=== PATIENT | male | born 1940 | race Caucasian/White ===

== ENCOUNTER 2017-07-16 12:45 | Emergency (ER) | payer MEDICARE ==
[~2017-07-16 12:45] MED LIST: ALLO300T2 PO; FLUO20TA29 PO; FURO40TA5 PO; HYDR-4064 PO; INSU3INS3 SQ; METO100T14 PO; MULT-1203 PO; NACL30SP2 NS; QUIN5TAB12 PO; ROSU40 PO; SPIR25TA4 PO; TEMA30CA PO; UBID100C45 PO; VITA-328 PO
== END 2017-07-16 14:52 | disposition home or self-care (01) ==
LOC: EDH 12:45
DX: S67.193A Crushing injury of left middle finger, initial encounter (principal); I10 Essential (primary) hypertension; E11.9 Type 2 diabetes mellitus without complications; Z95.0 Presence of cardiac pacemaker; W23.0XXA Caught, crushed, jammed, or pinched between moving objects, initial encounter; Y93.89 Activity, other specified; Y92.89 Other specified places as the place of occurrence of the external cause; Y99.8 Other external cause status
CPT/HCPCS: 73140

== ENCOUNTER 2019-05-28 15:29 | Emergency (ER) | payer MEDICARE ==
[~2019-05-28 15:29] MED LIST changes: -SPIR25TA4 PO; +SPIR25TA6 PO
[2019-05-28 16:09] LABS: BASOPHILS % (AUTO) 0.4 % (0.0-5.0); EOSINOPHILS % (AUTO) 2.3 % (0.0-8.0); HEMATOCRIT 37.8 % (42-54); LYMPHOCYTES % (AUTO) 11.1 % (21.0-51.0); MEAN CORPUSCULAR HEMOGLOBIN 29.3 pg (27.0-33.0); MEAN CORPUSCULAR HGB CONC 32.8 g/dL (32.0-36.0); MEAN CORPUSCULAR VOLUME 89.3 fL (79-99); MONOCYTES % (AUTO) 8.2 % (3.0-13.0); PLATELET COUNT (AUTO) 180 K/uL (130-400); RED BLOOD CELL COUNT(AUTO) 4.23 MIL/uL (4.50-6.20); RED CELL DISTRIBUTION WIDTH 16.2 % (11.0-15.5); WHITE BLOOD COUNT (AUTO) 8.6 K/uL (4.8-10.8)
[2019-05-28 16:18] LABS: POTASSIUM 3.9 mmol/L (3.5-5.1)
[2019-05-28 16:23] LABS: INR 1.13 (0.85-1.15); PARTIAL THROMBOPLASTIN TIME 39.4 SEC (26.3-35.5); PROTHROMBIN TIME 11.8 SEC (9.6-11.6)
== END 2019-05-28 18:25 | disposition home or self-care (01) ==
LOC: EDH 15:29
DX: R04.0 Epistaxis (principal); E11.9 Type 2 diabetes mellitus without complications; I10 Essential (primary) hypertension; Z95.1 Presence of aortocoronary bypass graft; Z87.891 Personal history of nicotine dependence; Z79.4 Long term (current) use of insulin
CPT/HCPCS: 36415; 80048; 85025; 85610; 85730

== ENCOUNTER → 2023-01-04 | Outpatient (CLI) | payer MEDICARE ==
[~2023-01-04] MED LIST changes: +QUIN5TAB PO; -QUIN5TAB12 PO
== END | disposition home or self-care (01) ==
LOC: RAH 09:23
PROVIDERS: ATTEND Internal Medicine Gastroenterology
DX: R13.10 Dysphagia, unspecified (principal); R12 Heartburn
CPT/HCPCS: 74240